=== PATIENT | female | born 1945 | race Caucasian/White ===

== ENCOUNTER → 2016-12-01 | Outpatient (CLI) | payer OTHER ==
--- NOTE | 2016-12-01 18:11 | DX ---
Left Shoulder, 2 Views History: Chronic left shoulder pain. Findings: No acute fracture or dislocation identified. Left humeral head osteophytes especially anter ior/inferior medially consistent with glenohumeral osteoarthritis. Downsloping acromion process. Mini mal osteophytes involving the left acromioclavicular joint. No destructive osseous lesions. Impression: 1. No definite acute fracture. 2. Moderate osteoarthritis, especially left glenohumeral joint with downsloping acromion process.
--- NOTE | 2016-12-01 18:17 | DX ---
Cervical Spine (AP and Lateral) Clinical Indications: Chronic neck and shoulder pain in a 71-year-old female. Findings: There is mild straightening of the normal cervical curvature. Vertebral body heights are we ll maintained. The prevertebral soft tissues appear normal. Multilevel degenerative changes are seen with disk space loss and bony hypertrophic changes extending from C4-C5 to the C6-C7 level. Disk spac e loss and vertebral body osteophytic lipping are most pronounced at C5-C6 and at C6-C7. Facet hypert rophy extends from C3-C4 to the C7-T1 level. Incidentally, there is a soft tissue calcification seen posteriorly at the C5-C6 level. Impression: Multilevel degenerative changes are noted as detailed above. If symptoms persist, MRI cou ld be considered for further evaluation.
== END ==
LOC: GIMAGING 11:08
PROVIDERS: ATTEND Internal Medicine Geriatric Medicine
DX: M50.321 Other cervical disc degeneration at C4-C5 level (principal); M46.92 Unspecified inflammatory spondylopathy, cervical region; M19.012 Primary osteoarthritis, left shoulder
CPT/HCPCS: 72040-PO; 73030-PO

== ENCOUNTER → 2018-11-03 | Outpatient (CLI) | payer OTHER | LOC: GIMAGING 11:50 | PROVIDERS: ATTEND Internal Medicine Geriatric Medicine | DX: M17.12 Unilateral primary osteoarthritis, left knee (principal) | CPT/HCPCS: 73562-PO ==